=== PATIENT | female | born 1945 | race Caucasian/White ===

== ENCOUNTER → 2016-06-14 | Outpatient (CLI) | payer OTHER, MEDICARE ==
[~2016-06-14] MED LIST: 5HTP PO; ATOR10TA82 PO; B-COTAB18 PO; BILB1CAP2 PO; BORA500C PO; BULKCRY PO; CALC-51 PO; CHOL1CAP57 PO; CLOB-65 EXT; COLL1CAP PO; GINK120C3 PO; LUTE1CAP4 PO; MBC75 PO; NUTR30CA PO; OMEG-27 PO; PRED1SUS3 OPL; PRIMROSE OIL PO; RIVA1TAB4 PO; THIA1TAB11 PO
--- NOTE | 2016-06-15 06:40 | PAP/PSG TECHNICIAN REPORT ---
[facility] Window Systems Administrator Polysomnogram Report Study name: None Report date: 06/15/2016 Study date: 06/14/2016 Referring Physician: Angelica ROE M.D. Name: LIZABETH BELL Interpreting Physician: Rupali Roe M.D. Date of : 1945 Window Systems Administrator: Maxine Goyal RPSGT. Sex: Female Age: 70 Study Type: PSG PAP Weight: 223 lbs 16 in Height: 70 years, Height 5' 5" Neck Circum: BMI: 37.11 Medications: ATORVASTATIN 10 MG, XARELTO 20 MG, TRAMADOL 50 MG, FLONASE 50 MCG/ACT, TEMOVATE 0.05% OINT, GINKO BILOBA 40 MG, THIAMINE 100 MG, 5-HTP 100 MG, B-COMPLEX VIT, FISH OIL, BORAGE OIL, LUTEIN 20 MG, GLUCOSAMINE, D3 HIGH POTENCY 1000 UNIT, BETA CAROTENE, CALCIUM 500 MG, PRIMROSE OIL, BILBERRY PLUS, HYALURONIC ACID, PYCNOGENOL COMPLEX Patient History 70 yr-old female here for a new CPAP treatment study. She was found to be positive for SALIMA with an AHI of 58. Her diagnostic study was on 01/17/16. She chose a Mirage FX Soft edge nasal mask size standard from [employer]. The test was started on room air and 4 CMH2O. ETCO2 testing was not utilized during this study. Room 1 Parameters Monitored NPSG: E1-M2, E2-M1, Fp1-M2, Fp2-M1, F3-M2, F4-M2, F4-M1, C3-M2, C4-M2, C4-M1, O1-M2, O2-M2, O2-M1, T3-M2, T4-M1, P3-M2, P4-M1, CHIN1, CHIN2, HR, EKG, Legs, PFLOW, SNOR, FLOW, CFLOW, Tidal Volume, THOR, ABDO, SpO2, PLTH, CPRESS, ETCO2 Wave, ETCO2, pH Sleep Architecture Sleep Stages Time at Lights Off 11:11:45 PM STAGES Time (min.) TST (%) Time at Lights On 5:56:15 AM Wake 135.5 -- Total Recording Time (TRT) 404.50 min. N1 42.5 16 Total Sleep Period (TSP) 393.0 min. N2 131.0 49 Total Sleep Time (TST) 269.0min. N3 30.5 11 Awake Time 135.5 min. REM 65.0 24 Wake after Sleep Onset 124.0 min. Sleep Efficiency (SE) 67 % Sleep Onset Latency (ANDREW) 11.5 min. Number of Stage 1 Shifts None Awakenings 37 Stage Changes 102 Number of REM periods 2 REM 65.0 24 REM Latency 185.5 min. NREM 204.0 76 Body Position Analysis Supine Right Left Side Prone Vertical Total Sleep Time (min.) 129.8 66.0 96.2 162.18 0.0 0.0 Total Sleep Time (%) 40% 25% 36% 60 0% N/A% Total Sleep Time REM (min.) 0.0 37.0 28.0 None 0.0 0.0 Total Sleep Time NREM (min.) 106.8 29.0 68.2 None 0.0 0.0 Intermittent Wake (min.) 22.9 83.5 29.1 None 0.0 0.0 Total Sleep Period (%) 33% None None None None None Arousals Myoclonus (PLM) * Events Count Index Events Count Index Spontaneous 34 8 Events Awake (PLMW) 62 27.5 Respiratory 41 9.8 Events Asleep w/ Arousal (PLMA) 19 4.2 PLM 19 4 Events Asleep w/o Arousal (PLMS) 34 7.6 Snoring 5 1 Total Asleep 53 11.8 Total 99 22 Total 115 17 Respiratory Analysis * CA OA MA CH H RERA Total Count 42 0 0 0 9 4 51 Index 9.4 0.0 0.0 0 2.0 1 12.3 Mean Duration 15.5 0.0 0.0 0.00 17.7 17.9 16.0 Longest Duration 24.6 0.0 0.0 0.00 0.0 19.0 27.2 Respiratory Event Summary Total Supine ~Supine Right Left Prone REM NREM Apneas Count 42 6 36 27 9 N/A 2 40 Index 9.4 3 13 24.5 5.6 N/A 2 12 Hypopneas (4% Desat) Count 9 4 5 1 4 N/A 0 9 Index 2.0 2.2 2 0.9 2.5 N/A 0.0 2.6 Apneas & All Hypopneas Count 51 10 41 28 13 N/A 2 49 Index 11.4 6 15 25 8 N/A 1.8 14.4 Respiratory Events (Cycle Specialist+All Hyp+RERA) Count 51 12 43 28 15 N/A 2 49 Index 12.3 7 16 25.5 9.4 N/A 1.8 15.6 Respiratory Related Arousal Count 41 12 36 25 11 N/A 0 44 Index 9.8 4 13 23 7 N/A 0 13 Snoring Analysis Supine Right Left Prone REM NREM Total Snore duration 12.4 min Snores count 387 4 200 N/A 3 588 591 Snore mean duration 1.3 Sec Snores index 217 4 125 N/A 2.8 172.9 131.8 TST with snoring (%) 4.6% Desaturation Event Summary: Minimum %SpO2 Event Count Mean/Min/Max Duration(sec.) Desaturation Index % Time In Bed > 90 95 27.1 / 11.8 / 59.8 15.3 93.2 86 - 90 1 13.8 / 13.8 / 13.8 2.2 6.8 81 - 85 0 N/A 0.0 0.0 76 - 80 0 N/A 0.0 0.0 71 - 75 0 N/A 0.0 0.0 66 - 70 0 N/A 0.0 0.0 61 - 65 0 N/A 0.0 0.0 56 - 60 0 N/A 0.0 0.0 51 - 55 0 N/A 0.0 0.0 < 50 0 N/A 0.0 0.0 Total REM NREM Awake <50% 0.0 min. 0.0 min. 0.0 min. 0.0 min. 51 - 60% 0.0 min. 0.0 min. 0.0 min. 0.0 min. 61 - 70% 0.0 min. 0.0 min. 0.0 min. 0.0 min. 71 - 80% 0.1 min. 0.0 min. 0.0 min. 0.1 min. 81 - 90% 27.1 min. 0.0 min. 20.6 min. 6.4 min. 91 - 100% 372.1 min. 65.0 min. 183.4 min. 123.7 min. Average 93 93 92 95 Minimum SpO2 79 91 87 79 Desaturation Event Index 14.1 0.9 15.6 19.5 # Desat. Events below 89% 20 N/A 14 6 Time(%) with Saturation below 89% 0.6 0.0 0.2 0.3 Time(min.) with Saturation below 89% 2.3 0.0 0.9 1.4 Time (mins) REM (mins) NREM (mins) % of TST SpO2 Below 90% 28 N/A N28 0.7 SpO2 Below 88% 4 0 0 0 Heart Rate Analysis Min (bpm) Max (bpm) Average (bpm) Awake 45 59 52 NREM 44 79 54 REM 49 62 55 Overall 44 79 54 Supplemental O2 Values Minimum O2 level: None Value Start Time End Time Window Systems Administrator Comments Ms. Bell slept in the right, left, and supine positions. No cardiac arrhythmias or PLMs noted. No bruxism noted. CPAP was initiated at +4 CMH2O and up-titrated to a level of +8 CMH2O, Cflex 2. She did have numerous central apneas; however, they appeared to be sleep onset central apneas that went away after she stayed asleep. A Mirage FX Soft edge nasal mask size standard from [employer] was used during titration She awoke to use the restroom one time during the night. Ms. Bell stated that she slept better than usual once she got to sleep. The final report will be interpreted and signed by a sleep physician. The completed physician report will then be placed in the patient medical record. Therapy Event: Therapy (cm H20) 4 6 7 8 Total Time at Pressure (min.) 143.8 89.5 62.5 108.7 TST at Pressure (min.) 27.3 89.5 62.0 90.2 # Periods 1 1 1 1 Sleep Onset (min.) 11.5 0.0 0.0 0.0 REM Onset (min.) N/A 53.2 N/A 71.7 Sleep Efficiency % 19 100 99 83 Wakefulness (%) 81.0 0.0 0.8 17.0 Wakefulness (min.) 116.5 0.0 0.5 18.5 NREM 1 (%) 16.0 2.2 4.8 13.3 NREM 1 (min.) 23.0 2.0 3.0 14.5 NREM 2 (%) 3.0 49.2 70.4 35.6 NREM 2 (min.) 4.3 44.0 44.0 38.7 NREM 3 (%) 0.0 17.3 24.0 0.0 NREM 3 (min.) 0.0 15.5 15.0 0.0 REM (%) 0.0 31.3 0.0 34.0 REM (min.) 0.0 28.0 0.0 37.0 # Arousals 44 8 13 34 Arousal Index 96.6 5.4 12.6 22.6 # Snore 34 218 314 25 Snore Index 74.6 146.2 304.0 16.6 AHI 74.6 0.7 1.9 9.3 AHI Supine N/A 8.4 1.9 11.1 AHI Non-Supine 74.6 0.0 N/A 8.0 NREM AHI 74.6 1.0 1.9 13.5 REM AHI N/A 0.0 N/A 3.2 RDI 79.0 0.7 3.9 9.3 # Obstructive 0 0 0 0 # Central Ap 29 0 0 13 # Mixed 0 0 0 0 # Hypopneas 5 1 2 1 RERAS 2 0 2 0 Total Respiratory Events 36 1 4 14 Time Below SpO2 89.00% (min.) 0.9 0.0 0.0 0.0 Mean NREM SpO2 (%) 93 92 91 93 Mean REM SpO2 (%) N/A 93 N/A 94 Mean Sleep SpO2 (%) 93 92 91 93 Min NREM SpO2 (%) 87 90 90 90 Min REM SpO2 (%) N/A 91 N/A 91 Position Supine (min.) 0.0 7.1 62.0 37.7 Position Non-supine (min.) 27.3 82.3 0.0 52.5 LM Index Sleep 22.0 8.0 13.6 11.3 LM Index NREM 22.0 7.8 13.6 11.3 LM Index REM N/A 8.6 N/A 11.4 Mean Heart Rate (bpm) 52 56 55 53 Min Heart Rate (bpm) 48 49 48 44
--- NOTE | 2016-07-01 14:28 | POLYSOMNOGRAPH REPORT ---
REFERRING PERSON: Dr. Danelle Roe. WIRE SETTER: Maxine Goyal. Ms. Bell is a 70-year-old female sent to the sleep lab for a CPAP titration study. She had a diagnostic study on 01/17/2016 which showed an AHI of 58. She has chosen a Mirage FX standard nasal mask for her titration. Her [place] sleepiness scale score on the evening of this study is not recorded. BMI is 37.11. Following the technical and digital specifications of the [place] [employer] (AASM) a standard diagnostic polysomnogram was performed monitoring EEG, EOG, EMG (chin and leg deviations), oxygen saturation, body position, digital video, respiratory effort and airflow. The sleep Stage and event scoring was based on the AASM Manual for the Scoring of Sleep and Associated Events 2007 edition. Apneas are defined as a drop in the peak thermal sensor excursion by >90% of baseline for at least 10 seconds. Hypopneas were scored using the 4% oxygen desaturation rule (4A-[employer]ic[employer]) and a decrease in the nasal pressure excursions by >30% of baseline for at least 10 seconds. Respiratory effort-related arousal (RERA's) is defined as a sequence of breaths lasting at least 10 seconds characterized by increasing respiratory effort or flattening of the nasal pressure waveform leading to an arousal from sleep when the sequence of breaths does not meet criteria for an apnea or hypopnea. Apnea Hypopnea index (AHI) is defined as the number of apneas and hypopneas occurring in an hour of sleep. Respiratory disturbance index (RDI) is defined as the number of apneas, hypopneas, and RERA's occurring in an hour of sleep. Ms. Bell's total sleep period time was 393 minutes. Total sleep time was 269 minutes. Sleep efficiency was 67%. Latency to sleep onset was 11.5 minutes with wake after sleep onset of 124 minutes. Total non-REM sleep time was 204 minutes. She spent 16% of that time in N1 sleep, 49% in N2 sleep and 11% in N3 sleep. REM latency was 185.5 minutes. Total REM sleep time was 65 minutes or 24% of total sleep time. There were 99 cortical arousals from sleep. Five of these arousals were due to snoring, 19 due to periodic limb movements of sleep, 41 were due to respiratory events and 34 were spontaneous. There were 53 periodic limb movements on this test. Limb movement index was 11.8, limb movement with arousal index was 4.2. On this titration, there were 42 central apneas, no obstructive apneas and no mixed apnea. There were 9 hypopneas and 4 RERA. Apnea-hypopnea index was 11.4. Of note, most of these central events occurred at sleep onset. There were 591 snoring events recorded. Total sleep time with snoring was 4.6%. Mean saturation during sleep was 93% with desaturations to 79%. Saturations were less than 89% for 2.3 minutes of recorded time. Occasional premature atrial complexes were noted on EKG monitoring. As stated above, this was a CPAP titration study. Ms. Bell was titrated from a CPAP pressure of 4 to a CPAP pressure of 8 over the course of the night. Increasing pressures were needed to prevent apneas and hypopneas. She was observed on a pressure of 8 for 90.2 minutes of recorded time. There were 37 minutes of REM sleep on this pressure. There were 13 central apneas and 1 hypopnea noted. Apnea-hypopnea index was 9.3. There were no desaturations less than 89%. IMPRESSION AND PLAN: A 70-year-old female with a history of severe sleep apnea with obstructive events, resolved on a pressure of 8. She did have some sleep onset central events during a period of frequent changes in sleep staging on this pressure. She did have non-supine REM sleep on a pressure of 8 and no respiratory events during that time. 1. I would recommend that she be started on CPAP at a pressure of 8. A download from her machine can be reviewed in 1 month both to check compliance as well as AHI and further pressure adjustments can occur at that time. 2. Should this patient continued to have central apneic events despite continued use of CPAP, then she may need a titration and be placed on a BiPAP ST or ASV for complex sleep apnea syndrome.
== END | disposition home or self-care (01) ==
LOC: C.NEUR 19:06
PROVIDERS: ATTEND Family Medicine
DX: R06.83 Snoring (principal); G47.10 Hypersomnia, unspecified; G47.09 Other insomnia

== ENCOUNTER 2020-10-07 07:47 | Observation (INO) ==
--- NOTE | 2020-08-29 16:18 | PAT Medication Instructions ---
Medication Instructions Date of Service August 29, 2020 Home Medications atorvastatin 10 mg tablet 10 mg PO HS beta carotene 30 mg capsule 30 mg PO QPM calcium carbonate 500 mg calcium (1,250 mg) tablet 500 mg PO BID cholecalciferol (vitamin D3) 25 mcg (1,000 unit) capsule 50 mcg PO BID collagen-hyaluronic gxoo-zedgcxihqb-xkfi extract 490 mg capsule 1 cap PO HS duloxetine 30 mg capsule,delayed release 30 mg PO HS ginkgo biloba 40 mg tablet 100 mg PO QAM glucosamine HCl 1,500 mg tablet 1,500 mg PO BID latanoprost 0.005 % eye drops 1 drp OPHTHALMIC (EYE) HS lutein 20 mg capsule 20 mg PO QPM omega-3 fatty acids 1,000 mg capsule 1,000 mg PO QPM rivaroxaban 20 mg tablet 20 mg PO QAM thiamine HCl (vitamin B1) 100 mg tablet 100 mg PO QPM timolol maleate 0.5 % eye drops 1 drp OPHTHALMIC (EYE) BID tramadol 50 mg tablet 50 - 100 mg PO BID PRN vit B complex 100 combo no.2 100 mg tablet,extended release 1 tab PO QAM Borage Oil Otc 1,200 mg PO TID Pyconogen Otc 100 mg PO QAM bilberry 100 mg PO QPM oxymetazoline [Afrin No Drip(oxymetazolin)] 2 spray INTRANASAL Q12H PRN ASK your prescriber and surgeon rivaroxaban 20 mg tablet 20 mg PO QAM STOP taking 2 weeks before surgery beta carotene 30 mg capsule 30 mg PO QPM collagen-hyaluronic tgzz-ivnoblfmlz-pdcw extract 490 mg capsule 1 cap PO HS ginkgo biloba 40 mg tablet 100 mg PO QAM glucosamine HCl 1,500 mg tablet 1,500 mg PO BID lutein 20 mg capsule 20 mg PO QPM omega-3 fatty acids 1,000 mg capsule 1,000 mg PO QPM Borage Oil Otc 1,200 mg PO TID Pyconogen Otc 100 mg PO QAM bilberry 100 mg PO QPM DO NOT take the morning of surgery calcium carbonate 500 mg calcium (1,250 mg) tablet 500 mg PO BID cholecalciferol (vitamin D3) 25 mcg (1,000 unit) capsule 50 mcg PO BID vit B complex 100 combo no.2 100 mg tablet,extended release 1 tab PO QAM Take morning of surgery With a small sip of water, OTHERWISE NOTHING TO EAT OR DRINK AFTER MIDNIGHT: timolol maleate 0.5 % eye drops 1 drp OPHTHALMIC (EYE) BID tramadol 50 mg tablet 50 - 100 mg PO BID PRN (okay to take up to 4 hours prior to surgery if needed) oxymetazoline [Afrin No Drip(oxymetazolin)] 2 spray INTRANASAL Q12H PRN (if needed) Take evening before surgery atorvastatin 10 mg tablet 10 mg PO HS calcium carbonate 500 mg calcium (1,250 mg) tablet 500 mg PO BID cholecalciferol (vitamin D3) 25 mcg (1,000 unit) capsule 50 mcg PO BID duloxetine 30 mg capsule,delayed release 30 mg PO HS latanoprost 0.005 % eye drops 1 drp OPHTHALMIC (EYE) HS thiamine HCl (vitamin B1) 100 mg tablet 100 mg PO QPM timolol maleate 0.5 % eye drops 1 drp OPHTHALMIC (EYE) BID tramadol 50 mg tablet 50 - 100 mg PO BID PRN (if needed) oxymetazoline [Afrin No Drip(oxymetazolin)] 2 spray INTRANASAL Q12H PRN (if needed) Other Notes If you have any questions please call us at [phone] or [phone] or [phone] or [phone]
--- NOTE | 2020-08-31 09:59 | Anesthesiology Consultation ---
Date of Service August 31, 2020 Assessment & Plan (1) Encounter for pre-operative examination: Chart Review Chart Review: Acceptable Risk for Surgery (preop Covid testing results ) and Patient seen in Pre Admission Testing Discussed case with Dr. Hodge- patient is approved Same Day Joint Program pending she has support overnight. Surgeon's office informed patient- patient will check if neighbor can stay overnight with her. If not- surgeon's office will contact us and she will be changed to overnight admission. Per PAT appointment 08/31/2020, patient denies any recent travel or large group activities. Wears mask when required. Patient is fully vaccinated for Covid. No known Covid infection in the past 90 days. No known Covid positive contacts or Covid related symptoms. Preop Covid testing scheduled 10/05/20= will await results. Educated on importance of self quarantining, social distancing and wearing mask in public both for the patient after Covid testing done Teaching & Discussion Pre-Anesthesia Teaching/Discussion Notes: Instructed NPO after midnight before surgery,except medications with 15 cc of water. Medication instructions provided according to the PAT guidelines. History Surgery Operation Date: 10/07/20 12:40 Proposed Procedures p Left Total Shoulder Arthroplasty Versus - Natanael Lozada DO s Left Reverse Total Shoulder Arthroplasty - Natanael Lozada DO Height/Weight Height: 5 ft 5 in Weight: 105.4 kg Allergies Allergy/AdvReac Type Severity Reaction Status Date / Time chocolate flavor Allergy Unknown MIGRAINE,VO Verified 08/26/20 12:21 MITING erythromycin base Allergy Unknown HIVE Verified 08/26/20 12:21 Iodinated Contrast Media Allergy Unknown HIVES TO Verified 08/26/20 12:21 CONTRAST Penicillins Allergy Unknown HIVES Verified 08/26/20 12:21 Sulfa (Sulfonamide Allergy Unknown HIVES Verified 08/26/20 12:21 Antibiotics) INSECT BITES Allergy Unknown "HIVES"-ALL Uncoded 08/31/20 10:02 OF THEM ADRI HORNETS Medications Home Medications Medication Instructions Recorded Confirmed Last Taken CPAP Machine 1 ea .ROUTE 08/10/20 08/10/20 Unknown atorvastatin 10 mg tablet 10 mg PO HS 08/10/20 08/26/20 Unknown beta carotene 30 mg capsule 30 mg PO QPM 08/10/20 08/26/20 Unknown calcium carbonate 500 mg calcium 500 mg PO BID 08/10/20 08/26/20 Unknown (1,250 mg) tablet cholecalciferol (vitamin D3) 25 50 mcg PO BID 08/10/20 08/26/20 Unknown mcg (1,000 unit) capsule collagen-hyaluronic 1 cap PO HS 08/10/20 08/26/20 Unknown yluu-vsgcpahmcx-lxcj extract 490 mg capsule duloxetine 30 mg capsule,delayed 30 mg PO HS 08/10/20 08/26/20 Unknown release ginkgo biloba 40 mg tablet 100 mg PO QAM 08/10/20 08/26/20 Unknown glucosamine HCl 1,500 mg tablet 1,500 mg PO BID 08/10/20 08/26/20 Unknown latanoprost 0.005 % eye drops 1 drp OPHTHALMIC (EYE) HS 08/10/20 08/26/20 Unknown lutein 20 mg capsule 20 mg PO QPM 08/10/20 08/26/20 Unknown omega-3 fatty acids 1,000 mg 1,000 mg PO QPM 08/10/20 08/26/20 Unknown capsule rivaroxaban 20 mg tablet 20 mg PO QAM 08/10/20 08/26/20 Unknown thiamine HCl (vitamin B1) 100 mg 100 mg PO QPM 08/10/20 08/26/20 Unknown tablet timolol maleate 0.5 % eye drops 1 drp OPHTHALMIC (EYE) BID 08/10/20 08/26/20 Unknown tramadol 50 mg tablet 50 - 100 mg PO BID PRN 08/10/20 08/26/20 Unknown vit B complex 100 combo no.2 100 1 tab PO QAM 08/10/20 08/26/20 Unknown mg tablet,extended release Borage Oil Otc 1,200 mg PO TID 08/26/20 08/26/20 Unknown Pyconogen Otc 100 mg PO QAM 08/26/20 08/26/20 Unknown bilberry 100 mg PO QPM 08/26/20 08/26/20 Unknown oxymetazoline [Afrin No 2 spray INTRANASAL Q12H PRN 08/26/20 08/26/20 Unknown Drip(oxymetazolin)] Past Medical History Medical History (Updated 08/31/20 @ 10:07 by Maya Mckinley PA-C) Cardiac murmur NO CARDIOLOGY 2017 ECHO showed no significant cardiac valve issues Chronic venous insufficiency DVT (deep venous thrombosis) SPONTANEOUSLY- 2015 (BILATERALLY) Hypertension Migraine SALIMA (obstructive sleep apnea) CPAP Pulmonary embolism 2015-DEVELOPED PULMONARY HYPERTENSION x 1 YEAR -ON XARELTO SINCE- NO ISSUES SINCE THAT TIME Spondylisthesis Trigger finger S/P SURGICAL REPAIR Urge incontinence Exercise / Class Metabolic Activity II 4-5 Yardwork/Stairs/Walk up hill (one flight of stairs - no chest pain or SOB ) Past Family History Family History Brother Family history of diabetes mellitus Past Surgical History Surgical History 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 History of carpal tunnel release R/L History of cataract surgery R/L History of colonoscopy 2019 History of esophagogastroduodenoscopy (EGD) 1969 History of eyelid surgery 2002 History of hand surgery Trigger finger release History of herniorrhaphy 2004 Past Anesthesia History No Hx of Anesthesia Complications and No Family Hx of Anesthesia Complications History of PONV No Hx of PONV and Hx of Motion Sickness (when sitting in the back of car ) Social History Smoking Status: Former smoker Do You Dip or Chew Tobacco: No Smoking End Date: QUIT 1969 Hx Alcohol Use: Yes Alcohol type: wine alcohol intake frequency: other Alcohol Intake Frequency Comment: USED TO DRINK 1-2 glasses daily- no alcohol x 6 weeks Hx Substance Use: No Review of Systems Patient denies chest pain, shortness of breath, dyspnea on exertion, reflux, cough, wheezing, palpitations. No hx of seizures, stroke, SC. No hx of blood transfusions Physical Exam Vital Signs VITALS BP 115/61 P 65 TEMP 99.0 SP02 97% RESP 16 Constitutional no acute distress ENMT Mouth: no TMJ clicking Thyromental Distance: > or= 3.5 Finger Breadths (3.5) Mallampati Class: III Permanent top left implant being placed 09/01/20 Crowns to molars Neck + limited neck extension (mild ) Respiratory normal respiratory effort; no respiratory distress Auscultation: lungs clear to auscultation bilaterally; no wheezes Cardiovascular Rate/Rhythm: regular rate and regular rhythm Heart Sounds: + murmur (I-II/ murmur ) Vessels: no carotid bruit (presumed radiation of cardiac murmur to neck ) Musculoskeletal Spine: + pain with cervical ROM (mild ) Extremities: extremities normal to inspection Psychiatric Orientation: alert Lab Results Anesthesia Preop Results Results Anesthesia Widget: WBC 6.42 K/uL (4.8-10.8) 08/31/20 Hgb 14.5 g/dL (12.0-16.0) 08/31/20 Hct 45.1 % (37-47) 08/31/20 Plt 250 K/uL (130-400) 08/31/20 Na 142 mmol/L (136-145) 08/31/20 K 4.2 mmol/L (3.5-5.1) 08/31/20 Cl 110 mmol/L (98-107) H 08/31/20 CO2 30 mmol/L (21-32) 08/31/20 BUN 23 mg/dl (7-18) H 08/31/20 Creat 0.94 mg/dl (0.6-1.2) 08/31/20 Glucose Level 121 mg/dl (70-99) H 08/31/20 PT 10.8 Seconds (9.0-12.0) 08/31/20 PTT 28.7 Seconds (21.0-31.0) 08/31/20 INR 1.1 (0.9-1.1) 08/31/20 Blood Type A Positive 08/31/20 Antibody Screen NEGATIVE 08/31/20 Testing Electrocardiogram Date: 08/31/20 Findings: + NSR @ (60 bpm) Normal EKG per cardio. Chest X-Ray Date: 08/31/20 Findings: + NAD Echocardiogram Date: 07/04/17 EF: 65% LV Function: normal RWMA: + none Other Findings: + LVH (Mild/concentric) and + diastolic dysfunction (Grade 1) Mild aortic valve sclerosis. Basal septum is thickened and angulated consistent with sigmoid septum.
--- NOTE | 2020-10-06 07:20 | History & Physical Report ---
Date of Service October 06, 2020 Assessment & Plan (1) Rotator cuff arthropathy of left shoulder: We will proceed with a left reverse shoulder arthroplasty. Postoperatively she will be placed in a sling and kept overnight in the hospital. She plans to use [facility] upon discharge. History of Present Illness Chief Complaint: Rotator cuff arthropathy of the left shoulder. Primary Care Provider: Kyleigh Blake DO Cruz is a pleasant 74-year-old female who is been dealing with chronic worsening left shoulder pain. X-rays and MRI have been diagnostic for advanced osteoarthritis of the left shoulder. The MRI also showed a complete tear of the supraspinatus. After failing conservative treatment, she has elected proceed with a left reverse shoulder arthroplasty.. Allergies Allergy/AdvReac Type Severity Reaction Status Date / Time erythromycin base Allergy Intermediate HIVE Verified 10/04/20 10:03 Iodinated Contrast Media Allergy Intermediate HIVES TO Verified 10/04/20 10:03 CONTRAST Penicillins Allergy Intermediate HIVES Verified 10/04/20 10:03 Sulfa (Sulfonamide Allergy Intermediate HIVES Verified 10/04/20 10:03 Antibiotics) chocolate flavor AdvReac Mild MIGRAINE,VO Verified 10/04/20 10:03 MITING Home Medications Medication Instructions Recorded Confirmed Type CPAP Machine 1 ea .ROUTE 08/10/20 08/10/20 History atorvastatin 10 mg tablet 10 mg PO HS 08/10/20 08/26/20 History beta carotene 30 mg capsule 30 mg PO QPM 08/10/20 08/26/20 History calcium carbonate 500 mg calcium 500 mg PO BID 08/10/20 08/26/20 History (1,250 mg) tablet (Calcium 500) cholecalciferol (vitamin D3) 25 50 mcg PO BID 08/10/20 08/26/20 History mcg (1,000 unit) capsule collagen-hyaluronic 1 cap PO HS 08/10/20 08/26/20 History ufxf-qothlmgena-bren extract 490 mg capsule duloxetine 30 mg capsule,delayed 30 mg PO HS 08/10/20 08/26/20 History release (Cymbalta) ginkgo biloba 40 mg tablet 100 mg PO QAM 08/10/20 08/26/20 History glucosamine HCl 1,500 mg tablet 1,500 mg PO BID 08/10/20 08/26/20 History latanoprost 0.005 % eye drops 1 drp OPHTHALMIC (EYE) HS 08/10/20 08/26/20 History lutein 20 mg capsule 20 mg PO QPM 08/10/20 08/26/20 History omega-3 fatty acids 1,000 mg 1,000 mg PO QPM 08/10/20 08/26/20 History capsule (Fish Oil Concentrate) rivaroxaban 20 mg tablet (Xarelto) 20 mg PO QAM 08/10/20 08/26/20 History thiamine HCl (vitamin B1) 100 mg 100 mg PO QPM 08/10/20 08/26/20 History tablet timolol maleate 0.5 % eye drops 1 drp OPHTHALMIC (EYE) BID 08/10/20 08/26/20 History tramadol 50 mg tablet 50 - 100 mg PO BID PRN 08/10/20 08/26/20 History vit B complex 100 combo no.2 100 1 tab PO QAM 08/10/20 08/26/20 History mg tablet,extended release (B-100 Complex ER) Borage Oil Otc 1,200 mg PO TID 08/26/20 08/26/20 History Pyconogen Otc 100 mg PO QAM 08/26/20 08/26/20 History bilberry 100 mg capsule 100 mg PO QPM 08/26/20 08/26/20 History oxymetazoline 0.05 % nasal mist 2 spray INTRANASAL Q12H PRN 08/26/20 08/26/20 History (Afrin No Drip (oxymetazoline)) clindamycin HCl 300 mg capsule 600 mg PO ONCE 1 Days #2 cap 09/12/20 Rx oxycodone 5 mg tablet 5 mg PO Q6 PRN #30 tab 10/05/20 Rx Past Med/Surg History Medical History Cardiac murmur NO CARDIOLOGY 2017 ECHO showed no significant cardiac valve issues Chronic venous insufficiency DVT (deep venous thrombosis) SPONTANEOUSLY- 2014 (BILATERALLY) Hypertension Migraine SALIMA (obstructive sleep apnea) CPAP Pulmonary embolism 2014-DEVELOPED PULMONARY HYPERTENSION x 1 YEAR -ON XARELTO SINCE- NO ISSUES SINCE THAT TIME Spondylisthesis Trigger finger S/P SURGICAL REPAIR Urge incontinence Surgical History 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 History of carpal tunnel release R/L History of cataract surgery R/L History of colonoscopy 2019 History of esophagogastroduodenoscopy (EGD) 1970 History of eyelid surgery 2002 History of hand surgery Trigger finger release History of herniorrhaphy 2004 Family History Brother Family history of diabetes mellitus Social History Smoking Status: Former smoker Second Hand Exposure: No; Hx Alcohol Use: Yes Alcohol type: wine Hx Substance Use: No Preferred Language: Tamaz[place] Communication Ability: Effective Step Down Nurse Required: No Beliefs That Will Affect Care: None Current Living Situation: Alone current occupational status: retired Feels Safe at Home: Yes Assistive Devices: CPAP and Glasses Review of Systems All systems reviewed & are unremarkable except as noted in HPI & below. Physical Exam On physical examination of the left shoulder, she has 120 degrees forward elevation 120 degrees of abduction. She has 4+ out of 5 motor strength with full can test and 5 5 motor strength with external rotation. She has crepitus throughout.. Constitutional WD/WN, vitals as above Eyes PERRL, conjunctivae normal, anicteric sclerae ENMT external ear and nose normal, oropharynx normal Neck trachea midline, no thyromegaly Respiratory normal respiratory effort Cardiovascular RRR, no murmur, no edema Gastrointestinal (Abdomen) normal bowel sounds, soft, nontender, no hepatosplenomegaly Psychiatric A+Ox3, euthymic affect Results & Data Results & Data Laboratory Results . Diagnostic Findings X-rays of the left shoulder do show advanced osteoarthritis with joint space narrowing, osteophyte formation, and [id number] articulation. MRI of the left shoulder confirms the arthritis and shows a supraspinatus tendon tear.. PG Care Time/CCT Total # of Minutes Spent Total Time Spent with Patient: Total time spent is greater than 50% in coordination of care (as documented) at patient's floor/unit and/or counseling patient: Coding Level of Care Code None Diagnoses Rotator cuff arthropathy of left shoulder M12.812
[~2020-10-07 07:47] MED LIST changes: -5HTP PO; +ACETAMINOPHEN 500 MG TAB PO SCH; -ATOR10TA82 PO; -B-COTAB18 PO; -BILB1CAP2 PO; -BORA500C PO; -BULKCRY PO; +BUPIVACAINE 0.5 % 5 MG/1 ML PF 10ML VIAL ONE; -CALC-51 PO; -CHOL1CAP57 PO; -CLOB-65 EXT; -COLL1CAP PO; +FAMOTIDINE 20 MG TAB PO SCH; +GABAPENTIN 300 MG CAP PO SCH; -GINK120C3 PO; +LR 15ML/HR IV SCH; +LR 60ML/HR IV SCH; -LUTE1CAP4 PO; -MBC75 PO; -NUTR30CA PO; -OMEG-27 PO; -PRED1SUS3 OPL; -PRIMROSE OIL PO; -RIVA1TAB4 PO; +ROPIVACAINE 0.5% HCL/PF 150 MG, BUPIVACAINE 0.75% MPF 20 ML, EPINEPHrine 30MG/30ML (OR ... INFIL SCH; -THIA1TAB11 PO; +TRANEXAMIC ACID 1,000 MG **IV Intra-op IV SCH; +TRANEXAMIC ACID 1,000 MG **IV Pre-op IV SCH; +ceFAZolin 2000MG 2,000 MG/15 ML SYR IV SCH; +dexAMETHasone 4 MG TAB PO SCH
--- NOTE | 2020-10-07 08:43 | History & Physical Bridge Note ---
Date of Service October 07, 2020 History & Physical Bridge Note I have examined the patient, reviewed the History & Physical and in the interval since the performance of the History & Physical I have noted the following changes of clinical significance: no changes noted
[2020-10-07] MEDS ORDERED: PROPOFOL IV EMULSION 10 MG/ML 20 ML VIAL IV ONE (10:38)
[2020-10-07] MEDS ORDERED: MIDAZOLAM HCL 1 MG/ML 2ML VIAL ONE (10:38)
[2020-10-07] MEDS ORDERED: ROCURONIUM BROMIDE 10 MG/ML 5 ML VIAL IV ONE (10:38)
[2020-10-07] MEDS ORDERED: DEXAMETHASONE SOD INJ 4 MG/ML VIAL ONE (10:38)
[2020-10-07] MEDS ORDERED: ONDANSETRON INJ 2 MG/ML 2 ML VIAL ONE (10:38)
[2020-10-07] MEDS ORDERED: fentaNYL citrate 100 MCG/2 ML VIAL ONE (10:38)
[2020-10-07] MEDS ORDERED: LIDOCAINE 2% 2 ML VIAL/AMP(20MG/ML) INFIL ONE (10:38)
[2020-10-07] MEDS ORDERED: ORTHO JOINT ANESTHETIC ONE (10:40)
[2020-10-07] MEDS ORDERED: GLYCOPYRROLATE 0.2 MG/ML VIAL ONE (12:14)
[2020-10-07] MEDS ORDERED: NEOSTIGMINE METHYLSULFATE 1 MG/ML 10ML VIAL ONE (12:14)
--- NOTE | 2020-10-07 12:48 | Operative Report ---
PG Post Operative Report Pre & Post Diagnosis Operation Date: 10/07/20 10:00 Pre-Op Diagnosis: Degenerative Joint Disease Left Shoulder Post-Op Diagnosis: Degenerative Joint Disease Left Shoulder I identified the patient and participated in the time-out.: Yes Procedure Operation Date: 10/07/20 10:00 Actual Procedures p Left Reverse Total Shoulder Arthroplasty(Left) - Natanael Lozada DO Surgeon Natanael Lozada DO Elevator Erector Helper Natanael Christianson PAC Estimated Blood Loss 250 Findings Consistent with Post-Op Diagnosis Specimens Left humeral head Complications none Disposition Disposition: Recovery Room Indications Nancy is a pleasant 74-year-old female who been dealing with chronic worsening left shoulder pain. X-rays and clinical examination were diagnostic for advanced arthritis of the left shoulder. After failing extensive conservative treatment, she elected proceed with a left reverse shoulder arthroplasty. Description of Procedure A CPT code modifier 59: The long head of the biceps tendon was enlarged and inflamed consistent with tendinopathy. A tenodesis was opted. This was a separate and distinct portion of the procedure. For these reasons, a CPT code modifier 59 will be added to this case. Implants used: I used a [employer]omet Comprehensive reverse total shoulder arthroplasty system with a size 10 press fit micro humeral stem, a +3 offset humeral tray and a +3 humeral bearing, a 25 mm small augment baseplate with a 6.5 mm central screw and 3 peripheral locking screws, and a size 36 mm eccentric glenosphere. Nancy arrived at [facility] for the above procedure. She was seen in the preoperative holding area and the operative extremity was identified and signed. She was given a preoperative antibiotic, TXA, and an interscalene nerve block. She was taken back to the operating room, laid on table in supine position, and put under general anesthesia. She was then put into the beachchair position. The shoulder was then prepped and draped in sterile fashion. A timeout was done and the patient and the operative extremity was properly identified. A deltopectoral approach was used. Dissection was taken down through the fascia and the deltoid was retracted laterally and the conjoined tendon was retracted medially. The anterior shoulder was exposed. The biceps groove was opened up and the biceps tendon was examined extensively. The biceps tendon demonstrated enlargement and inflammatory changes consistent with longstanding inflammation in the context of osteoarthritis and cuff arthropathy. The long head of the biceps tendon was then tenodesed to the upper border of the pectoralis major. This was a separate and distinct portion of the procedure. The subscapularis was then directly released off the lesser tuberosity with a peel technique. The inferior capsule was released and the humeral head was dislocated. A canal finding reamer was sent down the center of the humeral canal. Sequential reaming up to a size 10 reamer was done. Off that reamer, a proximal humeral resection guide was placed. The proximal humerus was resected at 135 of inclination and 25 of retroversion. Osteophytes were then removed and the glenoid was exposed. Time was spent doing a complete capsular and labral release. The glenoid guide was then placed in the inferior aspect of the glenoid. A 3.2 mm Steinmann pin was then placed into the glenoid vault at 10 of inclination. The glenoid baseplate was then reamed. The final size 25 mm small augment baseplate was then impacted in the place. A 6.5 mm central screw was then placed followed by 3 peripheral locking screws. A 36 mm eccentric glenosphere was then impacted into place. Surrounding soft tissues were then injected with 100 cc an orthopedic pain control cocktail. The proximal humerus was then exposed. Sequential broaching of the humerus up to a size 10 broach was done. Off that broach a +3 offset and +3 thickness humeral tray was trialed. The shoulder was then reduced, brought through a full range of motion, and felt to be stable. The shoulder was then dislocated and the broach was removed. The final size 10 micro press-fit humeral stem was then impacted into place. A +3 humeral bearing was then snapped onto a +3 offset humeral tray. The humeral tray was then impacted onto the humeral stem. The shoulder was once again reduced, brought through a full range of motion, and felt to be stable. The subscapularis was shortened and unable to be repaired. A dilute betadyne lavage was then done for 3 minutes. The joint was then irrigated with normal saline solution. Hemostasis was obtained. The interval was closed with 2-0 Vicryl suture. The skin was then closed with 2-0 Vicryl and maria g. A Silverlon dressing was placed and the arm was rested in a regular arm sling. She was then extubated and transferred to a hospital bed. She taken to the postanesthesia care unit in stable condition. She tolerated the procedure well. Natanael Christianson PA-C, was present for the entire procedure. He was critical for patient positioning, prepping, draping, retraction exposure, wound closure and application of sterile dressing. I attest to the content of the Intraoperative Record and any orders documented therein. Any exceptions are noted below.
--- NOTE | 2020-10-07 13:06 | XRay Report ---
XR shoulder LT min 2V routine CLINICAL HISTORY: Postoperative evaluation. COMPARISON: Left shoulder radiographs December 20, 2017. MRI of the left shoulder August 17, 2020. FINDINGS: Alignment of the reverse total left shoulder arthroplasty is anatomic. There is no peripro sthetic fracture or unexpected radiopaque foreign body. There are skin maria g. IMPRESSION: Expected findings following total left shoulder arthroplasty. ACT 112: Negative or not required by law. Electronically signed by: Eusebio Roe M.D. 10/07/2020 1:05 PM
--- NOTE | 2020-10-07 13:39 | Anesthesiology Progress Note ---
Date of Service October 07, 2020 Anesthesia Post Procedure Vital Signs Vital Signs: Temp Pulse Pulse Resp BP Pulse Ox 10/07/20 13:30 54 L 14 113/63 94 10/07/20 13:20 54 L 16 121/71 95 10/07/20 13:10 36.7 C 54 L 14 113/68 94 10/07/20 13:00 53 L 16 118/76 96 10/07/20 12:50 54 L 17 137/72 96 10/07/20 12:40 56 L 16 135/79 100 10/07/20 12:33 36.1 C L 70 12 139/82 98 10/07/20 08:31 36.9 C 61 20 146/70 H 95 Pain Intensity Left Shoulder: Pain Intensity: 3 Transfer of Care Handoff Completed per policy Notes Mental Status: alert / awake / arousable and participated in evaluation Patient Amnestic to Procedure: Yes Nausea / Vomiting: adequately controlled Pain: adequately controlled Airway Patency, RR, SpO2: stable & adequate BP & HR: stable & adequate Hydration State: stable & adequate Anesthetic Complications: no major complications apparent and Pt Satisfied with anesthetic care
[2020-10-07] MEDS ORDERED: bisacodyL 10 MG SUPP PR PRN (13:46)
[2020-10-07] MEDS ORDERED: MAGNESIUM HYDROXIDE SUSP 30 ML UDC PO PRN (13:46)
[2020-10-07] MEDS ORDERED: METOCLOPRAMIDE HCL INJ 5 MG/ML 2 ML VIAL IV PRN (13:46)
[2020-10-07] MEDS ORDERED: oxyCODONE HCL IR 5 MG TAB (IMMEDIATE RELEASE) PO PRN (13:46)
[2020-10-07] MEDS ORDERED: ONDANSETRON INJ 2 MG/ML 2 ML VIAL IV PRN (13:46)
[2020-10-07] MEDS ORDERED: NALOXONE HCL 0.4 MG/1 ML VIAL/CARP IV PRN (13:46)
[2020-10-07] MEDS ORDERED: HYDROmorphone INJ 0.5 MG/0.5 ML SYR IV PRN (13:46)
[2020-10-07] MEDS: SODIUM CHLORIDE 0.9% 1000ML 1,000 ML IV SCH (15:02)
[2020-10-07] MEDS: ACETAMINOPHEN 500 MG TAB PO SCH ×2 (15:02→21:02)
[2020-10-07] MEDS: KETOROLAC TROMETHAMINE 15 MG/ML VIAL IV SCH ×2 (17:21→22:35)
[2020-10-07] MEDS ORDERED: COUGH DROP (SUGAR FREE) LOZ 24 LOZ/1 BOX BUCCAL ONE (18:47)
[2020-10-07] MEDS: ceFAZolin 2000MG 2,000 MG/15 ML SYR IV SCH (20:56)
[2020-10-07] MEDS: TIMOLOL MALEATE 0.5% OP SOLN 5 ML BTL OP SCH (20:57)
[2020-10-07] MEDS ORDERED: ATORVASTATIN 10 MG TAB PO SCH (21:00)
[2020-10-07] MEDS ORDERED: DULoxetine HCL 30 MG CAP PO SCH (21:00)
[2020-10-07] MEDS ORDERED: SENNA 8.6 MG TAB PO SCH (21:00)
[2020-10-07] MEDS ORDERED: LATANOPROST 0.005% OP SOLN 2.5 ML BTL OP SCH (21:00)
[2020-10-07] MEDS ORDERED: NON-FORMULARY MEDICATION (Cpap Machine misc) SCH (21:00)
[2020-10-07] MEDS: DOCUSATE SODIUM 100 MG CAP PO SCH (21:01)
[2020-10-08] MEDS: SODIUM CHLORIDE 0.9% 1000ML 1,000 ML IV SCH (01:02)
[2020-10-08] MEDS: ACETAMINOPHEN 500 MG TAB PO SCH (05:02)
[2020-10-08] MEDS: ceFAZolin 2000MG 2,000 MG/15 ML SYR IV SCH (05:02)
[2020-10-08] MEDS: KETOROLAC TROMETHAMINE 15 MG/ML VIAL IV SCH ×2 (05:03→10:07)
[2020-10-08] MEDS ORDERED: dexAMETHasone 4 MG TAB PO SCH (08:00)
[2020-10-08] MEDS ORDERED: MULTIVITAMIN TAB PO SCH (09:00)
[2020-10-08] MEDS ORDERED: RIVAROXABAN 20 MG TAB PO SCH (09:00)
--- NOTE | 2020-10-08 09:31 | Orthopedic Progress Note ---
Date of Service October 08, 2020 Assessment & Plan (1) History of left shoulder replacement: Making good progress this morning. Stable for discharge per the plan. Follow-up with Dr. Lozada as scheduled. Subjective Reports minimal pain. She has some active motion to her fingers. She denies any lightheadedness or chest pain. There was some low blood pressure readings this morning. She thinks this will resolve when she wakes up more and has coffee. She wants to go home. Review of Systems All systems reviewed & are unremarkable except as noted in HPI & below. Physical Exam Left upper extremity: Silverlon dressing is clean dry and intact. She has active finger flexion with no active extension. Sensation is dull throughout the left upper extremity. Constitutional WD/WN, vitals as above no acute distress and not intoxicated appearing Respiratory normal respiratory effort; no labored breathing Cardiovascular Extremities: normal capillary refill Results & Data Results & Data Laboratory Results . Diagnostic Findings . PG Care Time/CCT Total # of Minutes Spent Total Time Spent with Patient: Total time spent is greater than 50% in coordination of care (as documented) at patient's floor/unit and/or counseling patient: Coding Level of Care Code 79807 Post Operative Follow-Up Diagnoses History of left shoulder replacement Z96.612
[2020-10-08] MEDS: DOCUSATE SODIUM 100 MG CAP PO SCH (09:56)
[2020-10-08] MEDS: TIMOLOL MALEATE 0.5% OP SOLN 5 ML BTL OP SCH (10:00)
--- NOTE | 2020-10-10 14:16 | Discharge Summary ---
Date of Service October 10, 2020 Admission HPI (Per Admitting) Nancy is a pleasant 74-year-old female who is been dealing with chronic worsening left shoulder pain. X-rays and MRI have been diagnostic for advanced osteoarthritis of the left shoulder. The MRI also showed a complete tear of the supraspinatus. After failing conservative treatment, she has elected proceed with a left reverse shoulder arthroplasty.. Admission Exam (Per Admitting) On physical examination of the left shoulder, she has 120 degrees forward elevation 120 degrees of abduction. She has 4+ out of 5 motor strength with full can test and 5 5 motor strength with external rotation. She has crepitus throughout.. Principal Diagnosis Same as "Discharge Diagnosis" noted below under Discharge Instructions. Discharge Exam Left upper extremity: Silverlon dressing is clean dry and intact. She has active finger flexion with no active extension. Sensation is dull throughout the left upper extremity. Discharge Data Procedures Performed Operation Date: 10/07/20 10:00 Actual Procedures p Left Reverse Total Shoulder Arthroplasty(Left) - Natanael Lozada DO Ordered Studies 10/07/20 05:00 US - OR guided needle placemen Routine Hospital Course (1) History of left shoulder replacement: On October 07, 2020 Nancy arrived at [facility] and underwent a left reverse shoulder arthroplasty without complication. She had a general anesthetic and a left interscalene nerve block. Postoperatively she was placed in a sling and transferred to the general orthopedic floors. Her hospital course was uneventful. On postop day #1 her vital signs were stable and her pain was well controlled. She was able to participate well with physical therapy doing ambulation and range of motion exercises. She was then discharged home. She will follow-up with orthopedics in 2 weeks. PG Care Time/CCT Total # of Minutes Spent Total Time Spent with Patient: Total time spent is greater than 50% in coordination of care (as documented) at patient's floor/unit and/or counseling patient: Discharge Plan Discharge Items Patient Disposition: Home - Self-Care Reason For Visit: DJD Left Shoulder Discharge Diagnosis: Left reverse shoulder replacement Activity: As commented below Non-emergency contact: Surgeon Call non-emergency contact if: your wound has increased redness and your wound has increased drainage Follow-up/Referrals: Kyleigh Blake DO [Primary Care Provider] - Diet: Regular Addtl Attending Provider Instructions: Activity and Therapy Recommendations: * If you are using [facility] then therapy will be provided at your home until they feel you have accomplished all of your goals. * If you are using [facility] then Physical Therapy will be provided until they feel you are ready to start Outpatient Physical Therapy. * If you are not using home therapy then Outpatient Physical Therapy should start about 3-5 days from your day of surgery. Therapy will last about 8-12 weeks * Wear your sling for 3 weeks, unless otherwise instructed. You may remove your sling to shower and to dress, but otherwise, you should be in your sling at all times, including while sleeping * The shoulder replacement is very stable and you can use your hand while in the sling * You were shown a series of exercises in the hospital. Do these exercises daily including the exercises you were shown in physical therapy. Medications: * Narcotic You will likely be sent home from the hospital with a prescription for the narcotic pain medication that worked best throughout your stay. * Other medications may be prescribed for specific circumstances. If you have any questions, please call the office at . * Resume previous home medications unless otherwise instructed Dressing Care: Leave the Silverlon dressing in place for 7 days. After 7 days you may remove the dressing. If the incision is not draining then you may leave the maria g open to air. If there is a little bit of drainage or if the maria g are getting stuck on your clothing then cover the incision with a dry dressing. The maria g will be removed at your 2 week follow-up appointment. Showering: You may shower with the Silverlon dressing in place. Do not let the shower spray hit the dressing directly. Pat the Silverlon dressing dry. If the dressing becomes wet underneath, then simply remove the dressing. Keep the incision dry until you are 7 days out from the day of surgery. After 7 days you may remove the Silverlon dressing and shower with the maria g exposed. Let soapy water run over the maria g and pat them dry. Do not scrub or soak the incision. Things To Watch For: * Drainage from the incision site that occurs more than one week after your surgery. * Increased redness at the incision site. * Fever above 102 degrees Fahrenheit. * Unusual chest pain or shortness of breath. * Call [facility] at with any of the above problems Follow-Up Visit: Follow-up with Dr. Lozada's PA (Natanael Christianson) 2-3 weeks after your day of surgery. He will remove your maria g and answer any questions. If you have any additional questions or concerns, Dr Lozada is usually in the office at the same time and will be available An appointment was probably scheduled when you signed-up for surgery in the office. If you have any questions call More detailed instructions as well as Frequently Asked Questions were provided in a folder by our office when you signed-up for surgery. Please review these instructions when you get home. If you have any further questions or concerns, please feel free to call the office at [phone] Pending Studies at Discharge: No Stand-Alone Forms: My [facility] [employer] [place], Smoking Cessation Medications and DC Order Prescriptions: Continued oxycodone 5 mg tablet 5 mg PO Q6 PRN (Reason: pain) Qty: 30 RF: 0 atorvastatin 10 mg tablet 10 mg PO HS RF: 0 Xarelto 20 mg tablet 20 mg PO QAM RF: 0 tramadol 50 mg tablet 50 - 100 mg PO BID PRN (Reason: Pain) RF: 0 latanoprost 0.005 % drops 1 drp ophthalmic (eye) HS RF: 0 timolol maleate 0.5 % drops 1 drp ophthalmic (eye) BID RF: 0 duloxetine [Cymbalta] 30 mg capsule,delayed release(DR/EC) 30 mg PO HS RF: 0 CPAP Machine Misc 1 ea .Route HS RF: 0 omega-3 fatty acids [Fish Oil Concentrate] 1,000 mg capsule 1,000 mg PO QPM RF: 0 thiamine HCl (vitamin B1) 100 mg tablet 100 mg PO QPM RF: 0 B-100 Complex 100 mg tablet extended release 1 tab PO QAM RF: 0 beta carotene 30 mg capsule 30 mg PO QPM RF: 0 calcium carbonate [Calcium 500] 500 mg calcium (1,250 mg) tablet 500 mg PO BID RF: 0 cholecalciferol (vitamin D3) 25 mcg (1,000 unit) capsule 50 mcg PO BID RF: 0 ginkgo biloba 40 mg tablet 100 mg PO QAM RF: 0 glucosamine HCl 1,500 mg tablet 1,500 mg PO BID RF: 0 bfetaewu-cznccflbpw-uugx-hops 490 mg capsule 1 cap PO HS RF: 0 lutein 20 mg capsule 20 mg PO QPM RF: 0 bilberry 100 mg Capsule 100 mg PO QPM RF: 0 Borage Oil Otc 1,200 mg PO TID RF: 0 Afrin No Drip(oxymetazolin) 0.05 % Mist 2 spray INTRANASAL Q12H PRN (Reason: Nasal Congestion) RF: 0 Pyconogen Otc 100 mg PO QAM RF: 0 clindamycin HCl 300 mg capsule 600 mg PO ONCE PRN (Reason: teeth cleaning) RF: 0 Discharge Orders: Discharge Order (Routine); Ordered 10/08/20 Ordered By: Андрей Camp/Other Patient Handouts: Shoulder Replace Surg Home Admission Data Admit Date/Time: 10/07/20 12:33 Attending Provider: Natanael Lozada Admit Provider: Natanael Lozada Primary Care Provider: Kyleigh Blake Other Interventions: Discharge Summary Assessment (RN) Last Done: 10/08/20 11:50
== END 2020-10-08 13:00 | disposition home or self-care (01) | DRG 483 ==
LOC: ASU 07:47 → 3E 12:33 → INTOOBSV 12:33
DX: Z86.711 Personal history of pulmonary embolism; I87.2 Venous insufficiency (chronic) (peripheral); Z88.2 Allergy status to sulfonamides; Z88.0 Allergy status to penicillin; Z20.822 Contact with and (suspected) exposure to COVID-19; M19.012 Primary osteoarthritis, left shoulder; G47.33 Obstructive sleep apnea (adult) (pediatric); Z99.89 Dependence on other enabling machines and devices; Z87.891 Personal history of nicotine dependence; I10 Essential (primary) hypertension; Z01.812 Encounter for preprocedural laboratory examination; Z86.718 Personal history of other venous thrombosis and embolism; Z91.041 Radiographic dye allergy status